=== PATIENT | male | born 1985 | race Asian ===

== ENCOUNTER 2023-02-04 10:29 | Emergency (ER) | payer BC, OTHER ==
[2023-02-04 10:38] VITALS: BP 128/87; PULSE 60; RESP 18; TEMP 98; BMI 23.1
[2023-02-04] MEDS ORDERED: SODIUM CHLORIDE 0.9% 500 ML INFUS.BAG IV ONE (11:00)
[2023-02-04 11:24] LABS: HEMATOCRIT 40.8 % (35.4-49); HEMOGLOBIN 13.9 G/dL (11.7-16.9); MCH 28.1 pg (25.7-33.7); MEAN CELL VOLUME 82.6 fl (80-96); MEAN PLT VOLUME 7.4 fl (7.5-11.1); PLATELET COUNT 265.1 10^3/uL (134-434); RBC 4.94 10^6/uL (4.00-5.60); RDW 14.7 % (11.9-15.9); WHITE BLOOD COUNT 8.6 10^3/uL (4.0-10.8)
[2023-02-04 11:26] LABS: PLATELET ESTIMATE ADEQUATE
[2023-02-04 11:50] LABS: BILIRUBIN,TOTAL 1.7 mg/dl (0.2-1); CALCIUM 10.3 mg/dl (8.5-10.1); CREATININE 0.9 mg/dl (0.6-1.3); SGOT/AST 15.6 U/L (15-37); TOT PROT 8.2 g/dl (6.4-8.2)
== END 2023-02-04 12:17 | disposition home or self-care (01) ==
LOC: FER 10:29
DX: R42 Dizziness and giddiness (principal); R20.2 Paresthesia of skin
CPT/HCPCS: 36415; 80053; 84484; 85027; 93005; 99284-25

== ENCOUNTER 2024-11-07 23:49 | Emergency (ER) | payer BC ==
[2024-11-08 00:02] VITALS: BP 117/84; PULSE 66; RESP 18; TEMP 97.3; BMI 23.2
[2024-11-08] MEDS: SODIUM CHLORIDE 1,000 ML IV ONE ×2 (00:07→00:26)
[2024-11-08] MEDS ORDERED: ONDANSETRON 4 MG/2 ML VIAL ONE (00:12)
[2024-11-08] MEDS: ONDANSETRON 4 MG/2 ML VIAL IVPB ONE (00:14)
[2024-11-08 01:01] LABS: ABSOLUTE IMMATURE GRANULOCYTES 0.06 x10^3/uL (0.0-0.031); BASOPHILS # 0.05 x10^3/uL (0.01-0.08); EOSINOPHIL % 1.4 % (0.8-7.0); EOSINOPHILS # 0.16 x10^3/uL (0.04-0.54); HEMATOCRIT 41.4 % (40.1-51.0); HEMOGLOBIN 13.5 g/dL (13.7-17.5); MCHC 32.6 g/dl (32.3-36.5); MEAN CELL VOLUME 83.3 fl (79.0-92.2); MEAN PLT VOLUME 9.7 fl (9.4-12.4); MONOCYTE # 0.56 x10^3/uL (0.30-0.82); MONOCYTE % 4.8 % (5.3-12.2); PLATELET COUNT 281 x10^3/uL (163-337); RDW 12.3 % (12.0-15.6)
[2024-11-08 01:32] LABS: POTASSIUM 4.4 mmol/L (3.5-5.1)
[2024-11-08 01:33] LABS: BLOOD UREA NITROGEN 17.8 mg/dL (7-18)
[2024-11-08 01:34] LABS: ALBUMIN 4.2 g/dl (3.4-5.0)
[2024-11-08 01:39] LABS: BILIRUBIN,TOTAL 0.8 mg/dL (0.2-1); TOT PROT 7.8 g/dl (6.4-8.2)
[2024-11-08] MEDS ORDERED: MECLIZINE HCL 25 MG TABLET (FP) ONE (02:13)
[2024-11-08] MEDS: MECLIZINE HCL 25 MG TABLET (FP) PO ONE (02:14)
[2024-11-08 02:29] LABS: HCV DIAGNOSTIC IN-HOUSE W/RFLX NON-REACTIVE (NONREACTIVE); HIV INTERPRETATION NEGATIVE (NEGATIVE)
== END 2024-11-08 03:07 | disposition home or self-care (01) ==
LOC: FER 23:49
PROC: 3E033GC Introduction of Other Therapeutic Substance into Peripheral Vein, Percutaneous Approach (ICD-10-PCS; principal; 2024-11-08)
PROC: 3E0337Z Introduction of Electrolytic and Water Balance Substance into Peripheral Vein, Percutaneous Approach (ICD-10-PCS; 2024-11-08)
DX: R11.2 Nausea with vomiting, unspecified (principal); R42 Dizziness and giddiness
CPT/HCPCS: 36415; 80053; 85025; 86803; 87389; 99284-25